=== PATIENT | female | born 1950 | race Caucasian/White ===

== ENCOUNTER 2019-10-30 09:08 | Day surgery (SDC) | payer MEDICARE ==
[2019-10-28 16:02] VITALS: BMI 37.8
[~2019-10-30 09:08] MED LIST: LACTATED RINGERS 1,000 ML IV SCH; LIDOCAINE 1% 20 ML VIAL (10MG/ML) FOR IV START INTRADERMA PRN
[2019-10-30 09:35] VITALS: RESP 16; TEMP 98.3
[2019-10-30] MEDS ORDERED: PROPOFOL 10 MG/ML 20 ML VIAL IV ONE (09:45)
--- NOTE | 2019-10-30 10:02 | P.PCN ---
Date of Procedure: 10/30/19 Procedure(s) Performed: BRIEF HISTORY: Patient is a 69-year-old pleasant white female scheduled for an elective colonoscopy as a part of screening for colorectal neoplasia. PROCEDURE PERFORMED: Colonoscopy with snare polypectomy. PREOPERATIVE DIAGNOSIS: Screening for colon cancer. IV sedation per Anesthesia. PROCEDURE: After informed consent was obtained, the patient, was brought into the endoscopy unit. IV sedation was administered by Anesthesia under continuous monitoring. Digital rectal examination was normal. Initially the Olympus CF-160 flexible video colonoscope was then inserted in the rectum, gradually advanced into the cecum without any difficulty. Careful examination was performed as the scope was gradually being withdrawn. Ileocecal valve and the appendiceal orifice were visualized and appeared normal. Prep was excellent. Mucosa of the cecum, ascending colon appeared normal. In the hepatic flexure there was a 5 limited sessile polyp that was removed by snare polyp rectum he. Rest of the transverse colon, descending colon, sigmoid colon, and rectum appeared normal. Retroflexion was performed in the rectum and no lesions were seen. Scattered sigmoid diverticula seen. The patient tolerated the procedure well. IMPRESSION: 5 mm hepatic flexure polyp status post polypectomy Scattered sigmoid diverticulosis . RECOMMENDATIONS: Findings of this examination were discussed with the patient is a family. She was advised to hfollow with the biopsy results. If the biopsy shows an adenoma she can have a repeat colonoscopy in 5 years
[2019-10-30 10:23] VITALS: BP 145/82; PULSE 60
== END 2019-10-30 11:05 | disposition home or self-care (01) ==
LOC: ORWHC2ENDO 09:08
PROVIDERS: ATTEND Internal Medicine Gastroenterology
DX: Z12.11 Encounter for screening for malignant neoplasm of colon (principal); D12.3 Benign neoplasm of transverse colon; K57.30 Diverticulosis of large intestine without perforation or abscess without bleeding; F39 Unspecified mood [affective] disorder; Z79.890 Hormone replacement therapy; Z79.899 Other long term (current) drug therapy; I10 Essential (primary) hypertension; E07.9 Disorder of thyroid, unspecified
CPT/HCPCS: 88305; 45385; J2704

== ENCOUNTER → 2021-07-09 | Outpatient (CLI) | payer MEDICARE ==
--- NOTE | 2021-07-09 11:49 | EST ---
EXERCISE STRESS AGE: 70 SEX: F HT: 5'1" WT: 200 lbs. PROTOCOL: Lexiscan STAGE: NA DURATION OF EXERCISE: 5 min. HEART RATE REST: 52 BLOOD PRESSURE REST: 142/80 MAXIMUM HEART RATE ACHIEVED: 66 MAXIMUM BLOOD PRESSURE: 145/60 85% MPHR: 129 100% MPHR: 152 METS: NA INDICATIONS: Shortness of breath CLINICAL INFORMATION: Baseline rhythm is sinus mechanism, rate of 52, normal axis and intervals, poor R wave progression, nonspecific ST-T wave changes. Baseline blood pressure 142/80 mmHg. Patient received injection of Lexiscan. Electrocardiograph monitoring revealed no evidence of diagnostic ischemic ST deviation. Cardiolite was injected per protocol. CONCLUSION: 1. Nondiagnostic electrocardiograph stress testing. 2. Nuclear images will be reported separately. MMODL / IJN: [id number] /
--- NOTE | 2021-07-09 12:46 | NM ---
EXAMINATION TYPE: NM stress lexiscan cardiolite DATE OF EXAM: 07/09/2021 COMPARISON: NONE HISTORY: Precordial chest pain TECHNIQUE: After the intravenous administration of 9.5 mCi Tc 99m Sestamibi - Cardiolite resting SPE CT images acquired 45 minutes post injection. The patient received 0.4mg Lexiscan, 25.0 mCi Tc 99m Sestamibi - Stress images obtained [address] injection FINDINGS: Review of stress and rest SPECT images demonstrates a smaller reversible ischemia involving the cardi ac apex. Stress-induced ischemia is not excluded. No fixed defects evident. Gated analysis shows norm al wall motion with an estimated left ventricular ejection fraction of 49 %. IMPRESSION: I cannot exclude a small area of stress-induced ischemia about the cardiac apex.
== END | disposition home or self-care (01) ==
LOC: RADNMMAIN 08:28
PROVIDERS: ATTEND Family Medicine
DX: R06.02 Shortness of breath (principal)
CPT/HCPCS: 93017; 78452; A9500

== ENCOUNTER 2024-09-27 14:00 | Observation (INO) | payer MEDICARE ==
--- NOTE | 2024-09-27 14:48 | ED ---
General Adult HPI - General Stated complaint: chest pain Time Seen by Provider: 09/27/24 14:00 Source: patient, RN notes reviewed, old records reviewed - History of Present Illness Initial comments: This is a 74-year-old female who presents to the emergency department complaining of having a sudden onset of lower abdominal cramping and the massive months of diarrhea. Patient states the cramping is improved but she continues t o have diarrhea. Patient denies any nausea vomiting. Patient states prior to 110 she was feeling completely fine. Patient denies any fever chills. Patient denies any back pain. Patient denies any other symptoms at this time - Related Data Home Medications Medication Instructions Recorded Confirmed FLUoxetine HCL [PROzac] 40 mg PO DAILY 10/28/19 09/27/24 Aspirin EC [Ecotrin Low Dose] 81 mg PO HS 09/27/24 09/27/24 Atorvastatin [Lipitor] 10 mg PO HS 09/27/24 09/27/24 Levothyroxine Sodium [Synthroid] 88 mcg PO HS 09/27/24 09/27/24 Lisinopril-Hctz 20-25 mg 1 tab PO HS 09/27/24 09/27/24 [Zestoretic 20-25] amLODIPine [Norvasc] 2.5 mg PO DAILY 09/27/24 09/27/24 Allergies Allergy/AdvReac Type Severity Reaction Status Date / Time metal - unknown Allergy see comment Uncoded 09/27/24 17:06 Review of Systems ROS Statement: Those systems with pertinent positive or pertinent negative responses have been documented in the HPI. ROS Other: All systems not noted in ROS Statement are negative. Past Medical History Past Medical History: Hypertension, Thyroid Disorder Additional Past Medical History / Comment(s): had urgency with stools History of Any Multi-Drug Resistant Organisms: None Reported Past Surgical History: Hysterectomy, Joint Replacement Additional Past Surgical History / Comment(s): feliciano carpel tunnel,feliciano knee replacements Past Anesthesia/Blood Transfusion Reactions: No Reported Reaction Past Alcohol Use History: Occasional Past Drug Use History: None Reported - Past Family History Mother Family Medical History: Cancer Additional Family Medical History / Comment(s): breast CA General Exam - General Exam Comments Initial Comments: GENERAL: Patient is well-developed and well-nourished. Patient is nontoxic and well- hydrated and is in mild distress. ENT: Neck is soft and supple. No significant lymphadenopathy is noted. Oropharynx is clear. Moist mucous membranes. Neck has full range of motion without eliciting any pain. EYES: The sclera were anicteric and conjunctiva were pink and moist. Extraocular movements were intact and pupils were equal round and reactive to light. Eyelids were unremarkable. PULMONARY: Unlabored respirations. Good breath sounds bilaterally. No audible rales rhonchi or wheezing was noted. CARDIOVASCULAR: There is a regular rate and rhythm without any murmurs gallops or rubs. ABDOMEN: Soft and nontender with normal bowel sounds. SKIN: Skin is clear with no lesions or rashes and otherwise unremarkable. NEUROLOGIC: Patient is alert and oriented x3. Cranial nerves II through XII are grossly intact. Motor and sensory are also intact. Normal speech, volume and content. Symmetrical smile. MUSCULOSKELETAL: Normal extremities with adequate strength and full range of motion. LYMPHATICS: No significant lymphadenopathy is noted PSYCHIATRIC: Normal psychiatric evaluation. Course Vital Signs 09/27/24 09/27/24 09/27/24 15:22 15:38 16:15 Temperature 98.3 F 98.7 F Pulse Rate 55 L 78 73 Respiratory 22 18 24 Rate Blood Pressure 79/50 173/84 84/48 O2 Sat by Pulse 94 L 100 98 Oximetry 09/27/24 09/27/24 16:52 18:06 Temperature 98.1 F Pulse Rate 70 66 Respiratory 24 24 Rate Blood Pressure 91/55 131/75 O2 Sat by Pulse 100 98 Oximetry Procedures - Sepsis Sepsis Focused Exam #1 Time Sepsis Criteria Met: 20:00 (CAT scan showed colitis) Sepsis Focused Exam Date: 09/27/24 Sepsis Focused Exam Time: 20:10 Sepsis Focused Exam Complete: Yes Vital Signs & RN Notes Reviewed: Yes Capillary Refill: < 2 Seconds: Fingers Peripheral Pulses: Normal: Radial (R) Skin Color: Normal for Patient Respiratory Exam: normal lung sounds Cardiovascular Exam: regular rate Medical Decision Making - Medical Decision Making EKG is interpreted by myself. EKG shows sinus rhythm at 60 bpm VA interval is 165 QRS is 107 QT interval is 462 QTc is 462. EKG [address] segment elevation Was pt. sent in by a medical professional or institution (, PA, BLEACHER OPERATOR, urgent care, hospital, or fdc...) When possible be specific @ -No Did you speak to anyone other than the patient for history (EMS, parent, family, police, friend...)? What history was obtained from this source @ -No Did you review nursing and triage notes (agree or disagree)? Why? @ -I reviewed and agree with nursing and triage notes Were old charts reviewed (outside hosp., previous admission, EMS record, old EKG, old radiological studies, urgent care reports/EKG's, fdc records)? Report findings @ -No old charts were reviewed Differential Diagnosis? @ -Differential Abdominal Pain Women: Appendicitis, Cholecystitis, diverticulosis, ischemic bowel, pancreatitis, hepatitis, UTI, gastroenteritis, AAA, incarcerated hernia, bowel obstruction, constipation, inflammatory bowel, hepatitis, peptic ulcer disease, splenic infarction, perforated viscus, vulvitis, ovarian torsion, PID, kidney stone, placenta abruption, this is not meant to be an all-inclusive list EKG interpreted by me (3pts min.). @ -As above X-rays interpreted by me (1pt min.). @ -None done CT interpreted by me (1pt min.). @ -CT of the abdomen pelvis shows sigmoid colitis U/S interpreted by me (1pt. min.). @ -None done What testing was considered but not performed or refused? (CT, X-rays, U/S, labs)? Why? @ -None What meds were considered but not given or refused? Why? @ -None Did you discuss the management of the patient with other professionals (professionals i.e. , PA, BLEACHER OPERATOR, lab, RT, psych nurse, child protective services social worker, guest advisor, teacher, sports development officer, outsole caser)? Give summary @ -[facility] I admitted the patient with admitting orders Was smoking cessation discussed for >3mins.? @ -No Was critical care preformed (if so, how long)? @ -No Were there social determinants of health that impacted care today? How? (Homelessness, low income, unemployed, alcoholism, drug addiction, transportation, low edu. Level, literacy, decrease access to med. care, [facility], rehab)? @ -No Was there de-escalation of care discussed even if they declined (Discuss DNR or withdrawal of care, Hospice)? DNR status @ -No What co-morbidities impacted this encounter? (DM, HTN, Smoking, COPD, CAD, Cancer, CVA, ARF, Chemo, Hep., AIDS, mental health diagnosis, sleep apnea, morbid obesity)? @ -None Was patient admitted / discharged? Hospital course, mention meds given and route, prescriptions, significant lab abnormalities, going to OR and other pertinent info. @ -Patient continued to have diarrhea throughout the ED course. Patient was given Lomotil. Patient was given multiple liters of IV fluids of normal saline. Patient had no signs of infection other than colitis so no antibiotics were started. Patient's ideal body weight was 56.7 kg patient was given well over 2 L of normal saline Undiagnosed new problem with uncertain prognosis? @ -No Drug Therapy requiring intensive monitoring for toxicity (Heparin, Nitro, Insulin, Cardizem)? @ -No Were any procedures done? @ -No Diagnosis/symptom? @ -Colitis Acute, or Chronic, or Acute on Chronic? @ -Acute Uncomplicated (without systemic symptoms) or Complicated (systemic symptoms)? @ -Colitis Side effects of treatment? @ -No Exacerbation, Progression, or Severe Exacerbation? @ -No Poses a threat to life or bodily function? How? (Chest pain, [place], [place], pneumonia, PE, COPD, DKA, ARF, appy, cholecystitis, CVA, Diverticulitis, Homicidal, Suicidal, threat to staff... and all critical care pts) @ -Yes this can lead to dehydration and endorgan dysfunction secondary to poor perfusion Diagnosis/symptom? @ -Acute diarrhea Acute, or Chronic, or Acute on Chronic? @ -Acute Uncomplicated (without systemic symptoms) or Complicated (systemic symptoms)? @ -Complicated Side effects of treatment? @ -None Exacerbation, Progression, or Severe Exacerbation] @ -No Poses a threat to life or bodily function? @ -No - Lab Data Result diagrams: 09/27/24 14:50 09/27/24 14:50 Lab Results 09/27/24 09/27/24 09/27/24 Range/Units 14:50 14:50 14:50 WBC 12.9 H (3.8-10.6) k/uL RBC 5.05 (3.80-5.40) m/uL Hgb 15.3 (11.4-16.0) gm/dL Hct 44.8 (34.0-46.0) % MCV 88.7 (80.0-100.0) fL MCH 30.2 (25.0-35.0) pg MCHC 34.1 (31.0-37.0) g/dL RDW 12.9 (11.5-15.5) % Plt Count 544 H (150-450) k/uL MPV 7.9 Neutrophils % 63 % Lymphocytes % 32 % Monocytes % 2 % Eosinophils % 1 % Basophils % 0 % Neutrophils # 8.2 H (1.3-7.7) k/uL Lymphocytes # 4.1 (1.0-4.8) k/uL Monocytes # 0.2 (0-1.0) k/uL Eosinophils # 0.2 (0-0.7) k/uL Basophils # 0.0 (0-0.2) k/uL Sodium 133 L (137-145) mmol/L Potassium 3.1 L (3.5-5.1) mmol/L Chloride 105 (98-107) mmol/L Carbon Dioxide 14 L (22-30) mmol/L Anion Gap 14 mmol/L BUN 19 H (7-17) mg/dL Creatinine 1.37 H (0.52-1.04) mg/dL Est GFR (CKD-EPI)AfAm 45 (>60 ml/min/1.73 sqM) Est GFR (CKD-EPI)NonAf 39 (>60 ml/min/1.73 sqM) Glucose 190 H (74-99) mg/dL Lactic Ac Sepsis Rflx Plasma Lactic Acid Edgar 4.6 H* (0.7-2.0) mmol/L Calcium 10.2 (8.4-10.2) mg/dL Total Bilirubin 0.9 (0.2-1.3) mg/dL AST 31 (14-36) U/L ALT 18 (4-34) U/L Alkaline Phosphatase 128 H (38-126) U/L Total Protein 7.3 (6.3-8.2) g/dL Albumin 4.4 (3.5-5.0) g/dL Stool Occult Blood (Negative) C. difficile (EIA) Intrp (Negative) 09/27/24 09/27/24 09/27/24 Range/Units 14:53 14:53 15:38 WBC (3.8-10.6) k/uL RBC (3.80-5.40) m/uL Hgb (11.4-16.0) gm/dL Hct (34.0-46.0) % MCV (80.0-100.0) fL MCH (25.0-35.0) pg MCHC (31.0-37.0) g/dL RDW (11.5-15.5) % Plt Count (150-450) k/uL MPV Neutrophils % % Lymphocytes % % Monocytes % % Eosinophils % % Basophils % % Neutrophils # (1.3-7.7) k/uL Lymphocytes # (1.0-4.8) k/uL Monocytes # (0-1.0) k/uL Eosinophils # (0-0.7) k/uL Basophils # (0-0.2) k/uL Sodium (137-145) mmol/L Potassium (3.5-5.1) mmol/L Chloride (98-107) mmol/L Carbon Dioxide (22-30) mmol/L Anion Gap mmol/L BUN (7-17) mg/dL Creatinine (0.52-1.04) mg/dL Est GFR (CKD-EPI)AfAm (>60 ml/min/1.73 sqM) Est GFR (CKD-EPI)NonAf (>60 ml/min/1.73 sqM) Glucose (74-99) mg/dL Lactic Ac Sepsis Rflx Y Plasma Lactic Acid Edgar (0.7-2.0) mmol/L Calcium (8.4-10.2) mg/dL Total Bilirubin (0.2-1.3) mg/dL AST (14-36) U/L ALT (4-34) U/L Alkaline Phosphatase (38-126) U/L Total Protein (6.3-8.2) g/dL Albumin (3.5-5.0) g/dL Stool Occult Blood Negative (Negative) C. difficile (EIA) Intrp Negative (Negative) 09/27/24 Range/Units 17:48 WBC (3.8-10.6) k/uL RBC (3.80-5.40) m/uL Hgb (11.4-16.0) gm/dL Hct (34.0-46.0) % MCV (80.0-100.0) fL MCH (25.0-35.0) pg MCHC (31.0-37.0) g/dL RDW (11.5-15.5) % Plt Count (150-450) k/uL MPV Neutrophils % % Lymphocytes % % Monocytes % % Eosinophils % % Basophils % % Neutrophils # (1.3-7.7) k/uL Lymphocytes # (1.0-4.8) k/uL Monocytes # (0-1.0) k/uL Eosinophils # (0-0.7) k/uL Basophils # (0-0.2) k/uL Sodium (137-145) mmol/L Potassium (3.5-5.1) mmol/L Chloride (98-107) mmol/L Carbon Dioxide (22-30) mmol/L Anion Gap mmol/L BUN (7-17) mg/dL Creatinine (0.52-1.04) mg/dL Est GFR (CKD-EPI)AfAm (>60 ml/min/1.73 sqM) Est GFR (CKD-EPI)NonAf (>60 ml/min/1.73 sqM) Glucose (74-99) mg/dL Lactic Ac Sepsis Rflx Plasma Lactic Acid Edgar 6.6 H* (0.7-2.0) mmol/L Calcium (8.4-10.2) mg/dL Total Bilirubin (0.2-1.3) mg/dL AST (14-36) U/L ALT (4-34) U/L Alkaline Phosphatase (38-126) U/L Total Protein (6.3-8.2) g/dL Albumin (3.5-5.0) g/dL Stool Occult Blood (Negative) C. difficile (EIA) Intrp (Negative) Disposition Clinical Impression: Colitis, Acute diarrhea Disposition: ADMITTED IP TO THIS HOSP Referrals: Jacquelyn Gipson DO [Primary Care Provider] - 1-2 days Time of Disposition: 20:10
[2024-09-27 15:17] LABS: Basophils % (A) 0 %; Eosinophils # (A) 0.2 k/uL (0-0.7); Eosinophils % (A) 1 %; HCT 44.8 % (34.0-46.0); HGB 15.3 gm/dL (11.4-16.0); Lymphocytes # (A) 4.1 k/uL (1.0-4.8); Lymphocytes % (A) 32 %; MCH 30.2 pg (25.0-35.0); MCHC 34.1 g/dL (31.0-37.0); MCV 88.7 fL (80.0-100.0); Mean Platelet Volume 7.9; Monocytes # (A) 0.2 k/uL (0-1.0); Monocytes % (A) 2 %; Neutrophils # (A) 8.2 k/uL (1.3-7.7); Neutrophils % (A) 63 %; Platelet Count 544 k/uL (150-450); RBC 5.05 m/uL (3.80-5.40); RDW 12.9 % (11.5-15.5); WBC 12.9 k/uL (3.8-10.6)
[2024-09-27 15:25] LABS: ALT 18 U/L (4-34); AST 31 U/L (14-36); African American GFR (CKD) 45 (>60 ml/min/1.73 sqM); Albumin 4.4 g/dL (3.5-5.0); Alkaline Phosphatase 128 U/L (38-126); Anion Gap 14 mmol/L; Blood Urea Nitrogen 19 mg/dL (7-17); Calcium 10.2 mg/dL (8.4-10.2); Carbon Dioxide 14 mmol/L (22-30); Chloride 105 mmol/L (98-107); Glucose 190 mg/dL (74-99); Non-African American GFR(CKD) 39 (>60 ml/min/1.73 sqM); Potassium 3.1 mmol/L (3.5-5.1); Sodium 133 mmol/L (137-145); Total Bilirubin 0.9 mg/dL (0.2-1.3); Total Protein 7.3 g/dL (6.3-8.2)
[2024-09-27] MEDS: SODIUM CHLORIDE 0.9% 1,000 ML IV ONE ×3 (15:34→20:32)
[2024-09-27] MEDS: DIPHENOX-ATROP 2.5-0.025 MG 1 EACH TAB PO STA ×2 (15:35→20:36)
--- NOTE | 2024-09-27 20:02 | CT ---
EXAMINATION TYPE: CT abdomen pelvis w con DATE OF EXAM: 09/27/2024 7:40 PM COMPARISON: None CLINICAL INDICATION: Female, 74 years old with history of Abdominal cramping, elevated lactic acid, d iarrhea; Abdominal cramping, elevated lactic acid, diarrhea. TECHNIQUE: Axial CT abdomen pelvis w con;Sagittal and coronal reformats were created on a separate w orkstation. Contrast used:80 ml mL of Isovue 300 with IV Contrast, (none if empty) Oral contrast used: without Oral Contrast (none if empty) CT DLP: 1574.3 mGycm, Automated exposure control for dose reduction was used. FINDINGS: LOWER CHEST: Unremarkable ABDOMEN LIVER: Unremarkable GALLBLADDER AND BILE DUCTS: Nondistended gallbladder with multiple calcified gallstones. PANCREAS: Unremarkable. SPLEEN: Unremarkable. ADRENAL GLANDS: Unremarkable. KIDNEYS AND URETERS: No evidence of hydronephrosis or renal calculus. The ureters are unremarkable. PELVIS BLADDER: No evidence for wall thickening or mass given limitations of exam. REPRODUCTIVE: Unremarkable. ABDOMEN & PELVIS STOMACH AND BOWEL: No evidence of bowel obstruction. Circumferential Wall thickening of the descendin g colon which is thought to be due to nondistention with more real wall distention thickening of the sigmoid colon with some engorgement of the vasa recta. There is mild fat stranding changes around the sigmoid colon. Water contents within the cecum and ascending colon. Tubing devices stuck with in and near the anus. PERITONEUM/RETROPERITONEUM: No evidence of pneumoperitoneum. Fluid collection right adnexa measuring 84 x 59 mm. VASCULATURE: No evidence of aortic aneurysm. MUSCULOSKELETAL: No acute osseous abnormalities. Moderate disc degeneration changes are present throu ghout the thoracolumbar spine. LYMPH NODES: No gross evidence for lymphadenopathy. SOFT TISSUE/ABDOMINAL WALL: Small hiatal hernia. IMPRESSION: 1. Sigmoid colon colitis. No organizing fluid collection or free air at this time. Short-term follow -up recommended to exclude underlying mass. 2. Right pelvis fluid collection of unknown etiology possibly ovarian or in the setting of hysterect sandi with nephrectomy possibly seroma/lymphocele. 3. Nondistended gallbladder with gallstones in the lumen. [facility], , 09/27/2024 8:00 PM
[2024-09-27] MEDS ORDERED: DIPHENOX-ATROP 2.5-0.025 MG 1 EACH TAB PO PRN (20:12)
[2024-09-27] MEDS: POTASSIUM CHLORIDE 20 MEQ in WATER FOR INJECTION 1 100ML.BAG IVPB STA (20:35)
[2024-09-27] MEDS: SODIUM CHLORIDE 0.9% 1,000 ML IV SCH (20:36)
[2024-09-28 05:42] LABS: Glucose,Whole Blood 130 mg/dL (70-110)
[2024-09-28] MEDS: LEVOTHYROXINE 88 MCG TAB PO SCH (06:08)
[2024-09-28] MEDS: FLUoxetine HCL 20 MG CAP PO SCH (08:14)
[2024-09-28] MEDS: amLODIPine 2.5 MG TAB PO SCH (08:14)
--- NOTE | 2024-09-28 13:06 | P.HPIM ---
History of Present Illness 72-year-old pleasant female came in with 1 day history of severe diarrhea without any abdominal pain patient has severe abdomen which showed sigmoid diverticulitis. Patient has significant endocrine abnormalities along with acute renal failure with serum creatinine going up to 1.24 and hyponatremia. Patient had any nausea vomiting patient had any fever chills patient does have leukocytosis with white blood cell count of 12,000 patient had a fecal management system her diarrhea improved because of which fecal management system will be discontinued although. Lomotil was ordered in the ER. Patient C. difficile is negative. REVIEW OF SYSTEMS: All other systems are negative except those mentioned in the HPI PHYSICAL EXAMINATION: GENERAL: The patient is alert and oriented x3, not in any acute distress. Well developed, well nourished. Obese HEENT: Pupils are round and equally reacting to light. EOMI. No scleral icterus. No conjunctival pallor. Normocephalic, atraumatic. No pharyngeal erythema. No thyromegaly. CARDIOVASCULAR: S1 and S2 present. No murmurs, rubs, or gallops. PULMONARY: Chest is clear to auscultation, no wheezing or crackles. ABDOMEN: Soft, nontender, nondistended, normoactive bowel sounds. No palpable organomegaly. MUSCULOSKELETAL: No joint swelling or deformity. EXTREMITIES: No cyanosis, clubbing, or pedal edema. NEUROLOGICAL: Gross neurological examination did not reveal any focal deficits. SKIN: No rashes. Assessment and plan -Sigmoid colitis: Patient will be treated for infectious colitis patient will be started on Rocephin and metronidazole. Continue with IV fluids but cut down the fluids to 100 cc/h -Severe hypokalemia secondary to diarrhea and IV fluids patient's potassium will be replaced aggressively will repeat basic metabolic profile tomorrow -Acute renal failure secondary to diarrhea and dehydration patient azotemia, vasomotor nephropathy. IV fluids as mentioned above -Hypothyroidism -Hypertension antihypertensive medications because of low blood pressure hy drochlorothiazide is being held because of low blood pressure along with amlodipine and LEONCIO inhibitor. If patient's diarrhea improves and if her electrolytes are better patient can be discharged tomorrow on 5 more days of antibiotics DVT prophylaxis: Early ambulation Past Medical History Past Medical History: Hypertension, Thyroid Disorder Additional Past Medical History / Comment(s): had urgency with stools History of Any Multi-Drug Resistant Organisms: None Reported Past Surgical History: Hysterectomy, Joint Replacement Additional Past Surgical History / Comment(s): feliciano carpel tunnel,feliciano knee replacements Past Anesthesia/Blood Transfusion Reactions: No Reported Reaction Smoking Status: Never smoker Past Alcohol Use History: Occasional Past Drug Use History: None Reported - Past Family History Mother Family Medical History: Cancer Additional Family Medical History / Comment(s): breast CA Medications and Allergies Home Medications Medication Instructions Recorded Confirmed Type FLUoxetine HCL [PROzac] 40 mg PO DAILY 10/28/19 09/27/24 History Aspirin EC [Ecotrin Low Dose] 81 mg PO HS 09/27/24 09/27/24 History Atorvastatin [Lipitor] 10 mg PO HS 09/27/24 09/27/24 History Levothyroxine Sodium [Synthroid] 88 mcg PO HS 09/27/24 09/27/24 History Lisinopril-Hctz 20-25 mg 1 tab PO HS 09/27/24 09/27/24 History [Zestoretic 20-25] amLODIPine [Norvasc] 2.5 mg PO DAILY 09/27/24 09/27/24 History Allergies Allergy/AdvReac Type Severity Reaction Status Date / Time metal - unknown Allergy see comment Uncoded 09/27/24 17:06 Physical Exam Vitals: Vital Signs Temp Pulse Pulse Resp BP BP BP 09/28/24 07:00 98.5 F 64 16 106/63 09/28/24 01:41 97.6 F 76 18 110/58 09/27/24 22:43 98 F 73 18 125/75 09/27/24 22:27 98 F 09/27/24 22:00 68 13 141/67 09/27/24 21:00 64 13 137/62 09/27/24 20:07 66 18 137/65 09/27/24 18:06 98.1 F 66 24 131/75 09/27/24 16:52 70 24 91/55 09/27/24 16:15 73 24 84/48 09/27/24 15:38 98.7 F 78 18 173/84 09/27/24 15:22 98.3 F 55 L 22 79/50 Pulse Ox 09/28/24 07:00 98 09/28/24 01:41 97 09/27/24 22:43 96 09/27/24 22:27 09/27/24 22:00 98 09/27/24 21:00 98 09/27/24 20:07 100 09/27/24 18:06 98 09/27/24 16:52 100 09/27/24 16:15 98 09/27/24 15:38 100 09/27/24 15:22 94 L Intake and Output 09/27/24 09/28/24 09/28/24 22:59 06:59 14:59 Other: # Voids 1 3 # Bowel Movements 1 Weight 92.986 kg Results CBC & Chem 7: 09/27/24 14:50 09/27/24 14:50 Labs: Abnormal Lab Results - Last 24 Hours (Table) 09/27/24 09/27/24 09/27/24 Range/Units 14:50 14:50 14:50 WBC 12.9 H (3.8-10.6) k/uL Plt Count 544 H (150-450) k/uL Neutrophils # 8.2 H (1.3-7.7) k/uL Sodium 133 L (137-145) mmol/L Potassium 3.1 L (3.5-5.1) mmol/L Carbon Dioxide 14 L (22-30) mmol/L BUN 19 H (7-17) mg/dL Creatinine 1.37 H (0.52-1.04) mg/dL Glucose 190 H (74-99) mg/dL POC Glucose (mg/dL) (70-110) mg/dL Plasma Lactic Acid Edgar 4.6 H* (0.7-2.0) mmol/L Alkaline Phosphatase 128 H (38-126) U/L 09/27/24 09/27/24 09/27/24 Range/Units 17:48 20:37 23:54 WBC (3.8-10.6) k/uL Plt Count (150-450) k/uL Neutrophils # (1.3-7.7) k/uL Sodium (137-145) mmol/L Potassium (3.5-5.1) mmol/L Carbon Dioxide (22-30) mmol/L BUN (7-17) mg/dL Creatinine (0.52-1.04) mg/dL Glucose (74-99) mg/dL POC Glucose (mg/dL) (70-110) mg/dL Plasma Lactic Acid Edgar 6.6 H* 3.1 H* 4.6 H* (0.7-2.0) mmol/L Alkaline Phosphatase (38-126) U/L 09/28/24 Range/Units 05:41 WBC (3.8-10.6) k/uL Plt Count (150-450) k/uL Neutrophils # (1.3-7.7) k/uL Sodium (137-145) mmol/L Potassium (3.5-5.1) mmol/L Carbon Dioxide (22-30) mmol/L BUN (7-17) mg/dL Creatinine (0.52-1.04) mg/dL Glucose (74-99) mg/dL POC Glucose (mg/dL) 130 H (70-110) mg/dL Plasma Lactic Acid Edgar (0.7-2.0) mmol/L Alkaline Phosphatase (38-126) U/L Thrombosis Risk Factor Assmnt - Choose All That Apply Each Factor Represents 1 point: Obesity (BMI >25) Each Risk Factor Represents 2 Points: Age 61-74 years Thrombosis Risk Factor Assessment Total Risk Factor Score: 3 Thrombosis Risk Factor Assessment Level: Moderate Risk
[2024-09-28] MEDS: POTASSIUM CHLORIDE ER 20 MEQ TAB.ER PO ONE ×2 (13:34→16:52)
[2024-09-28] MEDS ORDERED: POTASSIUM CHLORIDE ER 20 MEQ TAB.ER PO SCH (14:00)
[2024-09-28] MEDS: metroNIDAZOLE 500 MG TAB PO SCH (16:52)
[2024-09-28] MEDS ORDERED: LISINOPRIL-HCTZ 20-25 MG 1 EACH TAB PO SCH (21:00)
[2024-09-28] MEDS: ATORVASTATIN 10 MG TAB PO SCH (21:07)
[2024-09-28] MEDS: ASPIRIN 81 MG PO SCH (21:07)
[2024-09-29 01:29] VITALS: PULSE 63
[2024-09-29 07:52] VITALS: BP 165/72; RESP 16; TEMP 97.7
[2024-09-29 09:50] LABS: HCT 31.4 % (37.2-46.3); HGB 10.4 g/dL (12.0-15.0); MCH 29.6 pg (27.0-32.0); MCHC 33.1 g/dL (32.0-37.0); MCV 89.5 FL (80.0-97.0); Mean Platelet Volume 9.5 FL (9.5-12.2); NRBC Per 100 WBC 0 X 10*3/uL (0.00-0.01); Platelet Count 340 X 10*3/uL (140-440); RBC 3.51 X 10*6/uL (4.10-5.20); RDW 13.2 % (11.5-14.5); WBC 14.04 X 10*3/uL (4.50-10.00)
[2024-09-29 09:59] LABS: Blood Urea Nitrogen 13.6 mg/dL (9.0-27.0); Calcium 8.4 mg/dL (8.7-10.3); Chloride 110 mmol/L (96-109); Glucose 93 mg/dL (70-110); Magnesium 1.5 mg/dL (1.5-2.4); Potassium 4.2 mmol/L (3.5-5.5); Sodium 140 mmol/L (135-145)
--- NOTE | 2024-09-29 20:40 | P.DS ---
Providers Date of admission: 09/27/24 20:13 Attending physician: Adriana Castillo Primary care physician: Jacquelyn Gipson Hospital Course: Final Diagnosis -Sigmoid colitis: Patient will be treated for infectious colitis patient will be started on Rocephin and metronidazole. Continue with IV fluids but cut down the fluids to 100 cc/h -Severe hypokalemia secondary to diarrhea and IV fluids patient's potassium will be replaced aggressively will repeat basic metabolic profile tomorrow -Acute renal failure secondary to diarrhea and dehydration patient azotemia, vasomotor nephropathy. IV fluids as mentioned above -Hypothyroidism -Hypertension antihypertensive medications because of low blood pressure hydrochlorothiazide is being held because of low blood pressure along with amlodipine and LEONCIO inhibitor. Discharge Disposition Patient stable for discharge home as mentioned her diarrhea has completely resolved at this time her electrolytes have improved. She will continue 7 more days of antibiotic therapy. Diet as tolerated. Continue all other same home medications and PCP Dr. Jacquelyn Gipson at discharge. Hospital Course 72-year-old pleasant female came in with 1 day history of severe diarrhea without any abdominal pain patient has severe abdomen which showed sigmoid diverticulitis. Patient has significant endocrine abnormalities along with acute renal failure with serum creatinine going up to 1.24 and hyponatremia. Patient had any nausea vomiting patient had any fever chills patient does have leukocytosis with white blood cell count of 12,000 patient had a fecal management system her diarrhea improved because of which fecal management system will be discontinued although. Lomotil was ordered in the ER. Patient C. difficile is negative. Patient was started on IV ceftriaxone and oral metronidazole. Stool cultures pending and currently negative. Her electrolytes have normalized currently her sodium levels 140 potassium is 4.2, BUN of 13.6 creatinine of 0.8. Plan the lactic acid has normalized. Her magnesium level is 1.5. Patient is not having any nausea vomiting and she is not having any abdominal tenderness and she states that her diarrhea has resolved at this time. She will like to discharge home and will recommend a 7-day course of oral Ceftin and Flagyl. She states that her last colonoscopy was 5 years ago completed by Dr. Medina and she is advised to follow-up in the office on discharge. Please see medication reconciliation for a list of current medications. Thank you for allowing us to participate in the care of this patient. The impression and plan of care has been dictated by Iwona Gutierrez, Nurse Practitioner as directed. Dr. Katerin MD I have performed a history and physical examination and medical decision making of this patient, discussed the same with the dictator, and agree with the dictators assessment and plan as written, documented as a scribe. Based on total visit time, I have performed more than 50% of this visit. Patient Condition at Discharge: Stable Plan - Discharge Summary New Discharge Prescriptions: New cefuroxime axetiL [Ceftin] 500 mg PO BID 7 Days #14 tab metroNIDAZOLE [Flagyl] 500 mg PO TID 7 Days #21 tab Continue FLUoxetine HCL [PROzac] 40 mg PO DAILY amLODIPine [Norvasc] 2.5 mg PO DAILY Atorvastatin [Lipitor] 10 mg PO HS Aspirin EC [Ecotrin Low Dose] 81 mg PO HS Lisinopril-Hctz 20-25 mg [Zestoretic 20-25] 1 tab PO HS Levothyroxine Sodium [Synthroid] 88 mcg PO HS Discharge Medication List FLUoxetine HCL [PROzac] 40 mg PO DAILY 10/28/19 [History] Aspirin EC [Ecotrin Low Dose] 81 mg PO HS 09/27/24 [History] Atorvastatin [Lipitor] 10 mg PO HS 09/27/24 [History] Levothyroxine Sodium [Synthroid] 88 mcg PO HS 09/27/24 [History] Lisinopril-Hctz 20-25 mg [Zestoretic 20-25] 1 tab PO HS 09/27/24 [History] amLODIPine [Norvasc] 2.5 mg PO DAILY 09/27/24 [History] cefuroxime axetiL [Ceftin] 500 mg PO BID 7 Days #14 tab 09/29/24 [Rx] metroNIDAZOLE [Flagyl] 500 mg PO TID 7 Days #21 tab 09/29/24 [Rx] Follow up Appointment(s)/Referral(s): Jacquelyn Gipson DO [Primary Care Provider] - 1-2 days Alanna Benavides MD [STAFF PHYSICIAN] - 4 Weeks ([employer]) Ambulatory/Diagnostic Orders: Basic Metabolic Panel [LAB.AMB] Location: None Selected Complete Blood Count w/diff [LAB.AMB] Time Frame: 3 Days, Location: None Selected Magnesium [LAB.AMB] Location: None Selected Patient Instructions/Handouts: Colitis (ED) Discharge Disposition: HOME SELF-CARE
== END 2024-09-29 14:22 | disposition home or self-care (01) ==
LOC: EC 14:00 → 6NMEDSUR 20:13
PROVIDERS: ADMIT Hospitalist; ATTEND Hospitalist
DX: A09 Infectious gastroenteritis and colitis, unspecified (principal); N17.0 Acute kidney failure with tubular necrosis; E86.0 Dehydration; E87.1 Hypo-osmolality and hyponatremia; E87.6 Hypokalemia; E03.9 Hypothyroidism, unspecified; I10 Essential (primary) hypertension; Z79.890 Hormone replacement therapy; Z79.899 Other long term (current) drug therapy; Z90.710 Acquired absence of both cervix and uterus
CPT/HCPCS: 96361 ×2; 96366 ×3; 96367; 96365; 99285; 36415; 80053; 80048; 83605 ×2; 83735; 84132; 85025; 85027; 82272; 87324; 87045; 87046; 74177; G0378 ×3; J3480; J0696 ×2; Q9967

== ENCOUNTER → 2024-11-04 | Outpatient (CLI) | payer MEDICARE ==
--- NOTE | 2024-11-04 16:00 | MM ---
Reason for Exam: Screening (asymptomatic). Last mammogram was performed 7 year(s) and 1 month(s) ago. Patient History: Menarche at age 14. First Full-Term at age 29. Hysterectomy at age 34. Postmenopausal. Patient used Estrogen for 3 years. Paternal aunt had breast cancer. Paternal aunt had breast cancer. Mother had breast cancer, age 76. Risk Values: Dagmar 5 year model risk: 3.5%. NCI Lifetime model risk: 8.8%. Prior Study Comparison: 05/26/2015 Bilateral Screening Mammogram, [facility]. 06/05/2015 Right Diagnostic Mammogram, [facility]. 09/28/2017 Bilateral Screening Mammogram, [facility]. Tissue Density: There are scattered areas of fibroglandular density. Findings: Analyzed By CAD. Chronic nodularity on the right. Increasing regional calcifications upper outer quadrant right breast anteriorly, suspected developing benign secretory calcifications. This should be confirmed with further magnification views to assess morphology of the calcifications. Otherwise, no significant change. Overall Assessment: Incomplete: need additional imaging evaluation, BI-RAD 0 Management: Special View Mammogram of the right breast. [facility] will attempt to contact patient to return for supplemental views. [facility], , 11/04/2024 3:56 PM. Electronically signed and approved by: Roseann Miguel M.D. Radiologist
== END | disposition home or self-care (01) ==
LOC: RADMAMWWP 13:26
PROVIDERS: ATTEND Family Medicine
DX: Z12.31 Encounter for screening mammogram for malignant neoplasm of breast (principal); Z80.3 Family history of malignant neoplasm of breast; Z78.0 Asymptomatic menopausal state; R92.323 Mammographic fibroglandular density, bilateral breasts; N63.11 Unspecified lump in the right breast, upper outer quadrant
CPT/HCPCS: 77063; 77067

== ENCOUNTER → 2024-11-11 | Outpatient (CLI) | payer MEDICARE ==
--- NOTE | 2024-11-11 09:19 | MM ---
Reason for Exam: Additional evaluation requested from abnormal screening. Last screening mammogram was performed less than 1 month ago. Patient History: Menarche at age 14. First Full-Term at age 29. Hysterectomy at age 34. Postmenopausal. Patient used Estrogen for 3 years. Paternal aunt had breast cancer. Paternal aunt had breast cancer. Mother had breast cancer, age 76. Risk Values: Dagmar 5 year model risk: 3.5%. NCI Lifetime model risk: 8.8%. Tissue Density: Right: There are scattered areas of fibroglandular density. Findings: Analyzed By CAD. Calcifications right breast outer aspect because these are new from prior, follow-up in 6 months recommended. No new suspicious masses or distortions. Overall Assessment: Probably benign, BI-RAD 3 Management: Diagnostic Mammogram of the right breast in 6 months. Results were given to the patient verbally at the time of exam. Patient should continue monthly self-breast exams. A clinical breast exam by your physician is recommended on an annual basis. This exam should not preclude additional follow-up of suspicious palpable abnormalities. Note on Dagmar scores and lifetime risk: 1. A Dagmar score greater than 3% is considered moderate risk. If this is the case, consider specialist referral to assess eligibility for a risk reducing agent. 2. If overall lifetime risk for the development of breast cancer is 20% or higher, the patient may qualify for future screening with alternating mammogram and breast MRI. [facility], , 11/11/2024 9:16 AM. Electronically signed and approved by: Roscoe López DO
== END | disposition home or self-care (01) ==
LOC: RADMAMWWP 08:35
PROVIDERS: ATTEND Family Medicine
DX: R92.8 Other abnormal and inconclusive findings on diagnostic imaging of breast (principal); Z78.0 Asymptomatic menopausal state; Z80.3 Family history of malignant neoplasm of breast; R92.331 Mammographic heterogeneous density, right breast; R92.2 Inconclusive mammogram
CPT/HCPCS: 77065; G0279; 77061

== ENCOUNTER 2025-02-12 10:25 | Day surgery (SDC) | payer MEDICARE ==
[2024-11-11 16:04] VITALS: BMI 36.8
[~2025-02-12 10:25] MED LIST changes: -LIDOCAINE 1% 20 ML VIAL (10MG/ML) FOR IV START INTRADERMA PRN
[2025-02-12] MEDS: LACTATED RINGERS 1,000 ML IV SCH (11:00)
[2025-02-12] MEDS: IV FLUID CONTINUATION 1,000 ML IV ONE (11:00)
[2025-02-12 11:05] VITALS: TEMP 97.5
[2025-02-12] MEDS ORDERED: PROPOFOL 10 MG/ML 20 ML VIAL IV ONE (11:23)
[2025-02-12] MEDS ORDERED: GLYCOPYRROLATE 0.2 MG/ML 2 ML VIAL ONE (11:23)
--- NOTE | 2025-02-12 11:41 | P.PCN ---
Date of Procedure: 02/12/25 Procedure(s) Performed: BRIEF HISTORY: Patient is a 74-year-old pleasant female scheduled for an elective colonoscopy as a part of screening for prior history of colon polyps. Last colonoscopy was 5 years ago and was noted to have a tubular adenoma. PROCEDURE PERFORMED: Colonoscopy. PREOPERATIVE DIAGNOSIS: Screening for history of colon polyps. IV sedation per Anesthesia. PROCEDURE: After informed consent was obtained, the patient, was brought into the endoscopy unit. IV sedation was administered by Anesthesia under continuous monitoring. Digital rectal examination was normal. Initially the Olympus CF-160 flexible video colonoscope was then inserted in the rectum, gradually advanced into the cecum with moderate to severe difficulty. Careful examination was performed as the scope was gradually being withdrawn. Ileocecal valve and the appendiceal orifice were visualized and appeared normal. Prep was excellent. Mucosa of the cecum, ascending colon, transverse colon, descending colon, sigmoid colon, and rectum appeared normal. Moderate left-sided diverticulosis retroflexion was performed in the rectum and no lesions were seen. The patient tolerated the procedure well. IMPRESSION: Normal-appearing colon from rectum to cecum with no evidence of colorectal neoplasia. Moderate left-sided diverticulosis. RECOMMENDATIONS: Findings of this examination were discussed with the patient as well as her family.. She was advised to have repeat screening colonoscopy at age 82.
[2025-02-12 12:02] VITALS: BP 154/84; PULSE 57; RESP 20
== END 2025-02-12 12:24 | disposition home or self-care (01) ==
LOC: ORWHC2ENDO 10:25
PROVIDERS: ATTEND Internal Medicine Gastroenterology
DX: Z12.11 Encounter for screening for malignant neoplasm of colon (principal); Z86.0100 Personal history of colon polyps, unspecified; K57.30 Diverticulosis of large intestine without perforation or abscess without bleeding
CPT/HCPCS: 45378; J2704; J1596